=== PATIENT | male | born 1950 | race Caucasian/White ===

== ENCOUNTER 2019-12-09 05:07 | Day surgery (SDC) | payer MEDICARE ==
[~2019-12-09] VITALS: Ht 170.2 cm; Wt 100.2 kg
[~2019-12-09 05:07] MED LIST: FISH OIL 1,0001 CA1 PO; GLIPIZIDE10 MG; GLUCOPHAGE1000 MG PO; LOSARTAN-HCTZ1 EAC1 PO; OS-CAL500 MG PO; SAW PALMETTO450 MG PO
[2019-12-09 05:41] LABS: HEMATOCRIT 44.3 % (42.0-54.0); HEMOGLOBIN 15.6 g/dL (13.5-17.5); MCH 30.9 pg (26.0-34.0); MCHC 35.2 g/dL (31.0-37.0); MCV 87.7 fL (80.0-100.0); MEAN PLATELET VOLUME 11.4 fL (7.4-10.4); RBC 5.05 10x6/uL (4.20-6.10); RDW 13.3 % (11.5-14.5)
[2019-12-09 06:03] LABS: ANION GAP 14.8 mmol/L (8-16); CALCIUM 9.1 mg/dL (8.5-10.1); CARBON DIOXIDE 27.2 mmol/L (21.0-32.0); CREATININE - SERUM 1.5 mg/dL (0.6-1.3)
[2019-12-09 06:21] VITALS: Ht 170.2 cm; Wt 100.2 kg
--- NOTE | 2019-12-09 09:00 | NUR ---
0854-REC'D FROM RR. AWAKE AND ALERT. VSS. NO PAIN.COLBY PATENT AT GRAVITY DRAINING DARK RED URINE. REVIEWED DISCHARGE CRITERIA. CL IN EASY REACH. FULL LIQUID TRAY AT BEDSIDE. ASSISTED TO SIT AT SIDE OF BED TO EAT.
--- NOTE | 2019-12-09 09:18 | NUR ---
0915-TOLERATED TRAY. COLBY DRAINING BY GRAVITY DARK RED URINE, NO OBVIOUS CLOTTING IN TUBING OR BAG. REMOVED IV WITH CATH INTACT,DISPOSED INTO SHARPS.COVERED SITE WITH GUAZE AND MEDIPORE TAPE. REVIEWED COLBY CATH CARE.VERBALIZED UNDERSTANDING.
--- NOTE | 2019-12-09 09:48 | NUR ---
0944-PT DRESSED. REVIEWED POST OPERATIVE INSTRUCTIONS AND FOLLOW UP APPOINTMENT. VERBALIZED UNDERSTANDING. PT WAITING ON DR. LI TO SPEAK WITH HIM BEFORE HE LEAVES. DAUGHTER, WHO IS DRIVING PT HOME, IS AT A DR APPOINTMENT. WAITING ON HER BEFORE HE LEAVES.
--- NOTE | 2019-12-09 10:27 | OP ---
PATIENT NAME: BOOGIE JOHNSON MEDICAL RECORD: [id number] :48 LOCATION:[facility] ADMISSION DATE: SURGEON: ROBB LI MD DATE OF OPERATION: 12/09/2019 SURGEON: Robb Li MD ANESTHESIA: TIVA by Patito Nuñez CRNA DIAGNOSES: Elevated PSA 10.3 (09/23/2019), bladder outlet obstruction with IPSS 13 and quality of life score is 3. PROCEDURE: Cystoscopy, transrectal ultrasound and prostate biopsy, Coronado catheter insertion. FINDINGS: On cystoscopy, obstructive lateral lobes with a tall bladder neck. Very vascular prostatic urethra started to bleed as we passed the scope. Transrectal ultrasound shows a 54 gram prostate with intraprostatic stones. SPECIMENS: Prostate biopsy cores. BLOOD LOSS: Minimal. CLINICAL HISTORY: This is a 69-year-old male, who has obstructive voiding symptoms. He has urgency with urge incontinence, weak stream and postvoid dribbling. He has nocturia times 1-2. He has also had urinary tract infections. He has an elevated PSA of 10.3. I saw him in 2018 and he had an elevated PSA of 7.52 at that time (05/20/2018). He has a positive family history for prostate cancer. A prostate biopsy was recommended in 2018, but the patient did not wish to have it done at that time. He comes today to have it done. HE IS ALLERGIC TO PENICILLIN. He was given Ancef after a test dose proved negative for cross reaction. DESCRIPTION OF PROCEDURE: The patient was given IV sedation. He was placed into lithotomy position and prepped and draped. Cystoscopy was performed using a 17-Tuvaluan cystoscope with 30-degree lens. The prostatic urethra was extremely vascular. The lateral lobes are large and obstructive. He also has a very tall bladder neck. There was a bit of a mound of median lobe. 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 I wanted to have a biopsy of this and I had to switch over to a 21-Tuvaluan scope. By the time I got the 21-Tuvaluan scope in the prostatic urethral bleeding was quite significant. I could not visualize what I was looking for. We then removed the scope. The transrectal ultrasound probe was then introduced. Prostate size measurements were obtained. We obtained a size of 54 grams. There are intraprostatic stones, which caused shadowing. Sextant biopsies were obtained with at least 3 cores from each sextant. Once this was done, then we inserted a 16-Tuvaluan Coronado catheter into the bladder to help drain the gross hematuria from the cystoscopy. I will see him in followup next week to review the pathology results with him. TRANSINT:[id number] Voice Confirmation ID: [id number] DOCUMENT ID: [id number] OPERATIVE REPORT [id number] BOOGIE JOHNSON, ROBB Godoy MD at 1027 CC: [id number] DICTATION DATE: 12/09/19 0846 SIGNAL AND COMMUNICATIONS MAINTAINER: 12/09/19 0902 [facility] [address] [place] [address]
--- NOTE | 2019-12-09 11:02 | NUR ---
1055-DR LI TO ROOM. CONTINUE TO WAIT ON DAUGHTER FOR RIDE HOME
--- NOTE | 2019-12-09 11:11 | NUR ---
1110-DAUGHTER HER TO TRANSPORT HOME. AGAIN REVIEWED POST OPERATIVE INSTRUCTIONS,COLBY CARE AND FOLLOW UP APPOINTMENT. ESCORTED OUT VIA W/C BY STAFF TO DAUGHTER AWAITING TO DRIVE HOME.
== END 2019-12-09 11:10 | disposition home or self-care (01) ==
LOC: D.OPS 05:07 → D.PAN 07:30 → D.OPS 11:10
PROVIDERS: Anesthesiology; ATTEND Urology
DX: R97.20 Elevated prostate specific antigen [PSA] (principal); N39.41 Urge incontinence; N32.0 Bladder-neck obstruction; I10 Essential (primary) hypertension; E78.00 Pure hypercholesterolemia, unspecified; E11.9 Type 2 diabetes mellitus without complications